=== PATIENT | female | born 1975 | race Caucasian/White ===

== ENCOUNTER 2024-05-02 06:34 | Day surgery (SDC) | payer MEDICARE, MEDICAID, SELFPAY ==
[2024-04-27 07:26] VITALS: BMI 36.5
--- NOTE | 2024-04-29 11:56 | P.CONAN_ITS ---
HPI - Anesthesia Eval Consult details Narrative: 49yo F for Right Cataract Extraction IOL Insertion No previous cataract on record Down's syndrome - custodial - signs for self PMFSH Past Medical History Medical History Severe obesity (BMI 35.0-39.9) with comorbidity Sleep apnea Down's syndrome Dementia Acne Surgical History Surgical History History of ear surgery History of esophagogastroduodenoscopy (EGD) Social History Social History Patient Tobacco Use Status: Never used Tobacco Use of substances other than those prescribed or required for medical reasons: No Advance Directives: No Advance Directives Information Provided: Yes Advance Directives on File: No Recently lost weight without trying: No Nutrition Risks: No Nutritional Risk Patient : No Meds Allergies Allergy/AdvReac Type Severity Reaction Status Date / Time No Known Allergies Allergy Verified 05/02/24 07:07 Home Medications ?Medication ?Instructions ?Recorded ?Confirmed ?Last Taken ?Type acetaminophen 650 mg 650 mg PO Q8H PRN Pain 04/27/24 05/02/24 Unknown History tablet,extended release (Tylenol 8 Hour) aluminum-mag hydroxide-simethicone 10 ml PO QID PRN Acid Reflux 04/27/24 05/02/24 Unknown History 200 mg-200 mg-20 mg/5 mL oral susp fluoxetine 20 mg capsule 20 mg PO DAILY 04/27/24 05/02/24 05/02/24 History guaifenesin 100 mg/5 mL oral liquid 200 mg PO Q4H PRN Cough 04/27/24 05/02/24 Unknown History levothyroxine 75 mcg tablet 75 mcg PO DAILY 04/27/24 05/02/24 05/02/24 History Exam Height,Weight and Vital Signs: Height 4 ft 3.97 in Weight 63.6 kg Assessment and Plan Assessment Anesthesia Assessment: Chart Reviewed
[2024-05-02] VITALS (7 sets, daily range): BP systolic 115–129; BP diastolic 49–66; PULSE 51–64; RESP 16–18; TEMP 36.3–36.6; O2SAT 97–100; BMI 36.4
[2024-05-02] MEDS: Tetracaine HCl/PF 0.5% Oph Sol 4 ML DROPS 1 DROP EYE-RIGHT (07:10)
[2024-05-02] MEDS: Cyclopentolate 1 % Ophth Sol 2 ML DRPBTL 1 DROP EYE-RIGHT ×3 (07:11→07:27)
[2024-05-02] MEDS: Tropicamide 1 % Ophth Sol 3 ML BTL 1 DROP EYE-RIGHT ×3 (07:13→07:29)
[2024-05-02] MEDS: Ketorolac Tromethamine 0.5% Op 5 ML DROPS 1 DROP EYE-RIGHT ×3 (07:15→07:31)
[2024-05-02] MEDS: Phenylephrine HCL 2.5% Oph SoL 2 ML BOTTLE 1 DROP EYE-RIGHT ×3 (07:17→07:33)
[2024-05-02] MEDS: Lactated Ringers 500 ML 50 ML IV (07:19)
--- NOTE | 2024-05-02 07:25 | HO.ANESPROP2 ---
[facility] Past Medical History Medical History Severe obesity (BMI 35.0-39.9) with comorbidity Sleep apnea Down's syndrome Dementia Acne Functional capacity: independent ambulation Patient : No Family History Family history of problems with anesthesia: No Surgical History Surgical History History of ear surgery History of esophagogastroduodenoscopy (EGD) History of Problems with Anesthesia: No Social History Social History Patient Tobacco Use Status: Never used Tobacco Use of substances other than those prescribed or required for medical reasons: No Advance Directives: No Advance Directives Information Provided: Yes Advance Directives on File: No Recently lost weight without trying: No Nutrition Risks: No Nutritional Risk Meds Allergies Allergy/AdvReac Type Severity Reaction Status Date / Time No Known Allergies Allergy Verified 05/02/24 07:07 Active Medications: Current Medications Lactated Ringer's (Lr) 500 mls @ 50 mls/hr IV .Q10H HUNTER Stop: 05/02/24 16:59 Last Admin: 05/02/24 07:19 Dose: 50 mls/hr Povidone Iodine (Povidone Iodine 5 % Ophth Soln 30 Ml Bottle) 1 appl EYE-RIGHT PREOP PRN PRN Reason: Pre-Op Surgical Implant Prophy Home Medications ?Medication ?Instructions ?Recorded ?Confirmed ?Last Taken ?Type acetaminophen 650 mg 650 mg PO Q8H PRN Pain 04/27/24 05/02/24 Unknown History tablet,extended release (Tylenol 8 Hour) aluminum-mag hydroxide-simethicone 10 ml PO QID PRN Acid Reflux 04/27/24 05/02/24 Unknown History 200 mg-200 mg-20 mg/5 mL oral susp fluoxetine 20 mg capsule 20 mg PO DAILY 04/27/24 05/02/24 05/02/24 History guaifenesin 100 mg/5 mL oral liquid 200 mg PO Q4H PRN Cough 04/27/24 05/02/24 Unknown History levothyroxine 75 mcg tablet 75 mcg PO DAILY 04/27/24 05/02/24 05/02/24 History Exam Height,Weight and Vital Signs: Height 4 ft 3.97 in Weight 63.4 kg Last Vital Signs Temp 97.6 F 05/02/24 07:15 Pulse 51 05/02/24 07:15 Resp 16 05/02/24 07:15 BP 129/58 L 05/02/24 07:15 Pulse Ox 100 05/02/24 07:15 O2 Del Method Room Air 05/02/24 07:15 Airway Mallampati Class: III TM Dist: >3cm Neck ROM: Full Heart: RRR Lungs: CTA Assessment and Plan Assessment Anesthesia Assessment: Anesthesia Plan Discussed and Chart Reviewed Final Anesthetic Review Family History of Problems with Anesthesia: No History of Problems with Anesthesia: No NPO: Yes ASA Class: III Final Preanesthetic Review: Meds/Allgs Chart Reviewed, Consent Obtained/Reviewed and Anes Risks/Benef Reviewed Patient Risk: Low Procedure Risk: Low Anesthetic Plan Anesthetic Plan: MAC: Disposition: Standard PACU
--- NOTE | 2024-05-02 07:33 | PC.NURSE ---
Sister Zenaida Florian at bedside. Patient alert to self. Unable to answer what procedure is being done and where she is. Zenaida, next of kin, to sign legal documents and consents.
[2024-05-02 07:51] LABS: UPreg QC Valid YES; Urine Pregnancy NEGATIVE (NEGATIVE)
--- NOTE | 2024-05-02 08:03 | MHC.SHP ---
Pre-Procedural Eval Section A - 24 Hr Update-Section A only Date of Service: 05/02/24 The patient is an INPATIENT: No Changes since office visit: No Cold of Flu in the past 2 weeks, No New Medical Problems, No Changes in Medication and No Patient answered all questions The patient has been examined within 24 hours of the surgical procedure. The History & Physical has been completed within 30 days and I have reviewed it.: Yes Section B - Complete if H&P > 30 days Chief Complaint: Age-related nuclear cataract, right eye Allergies: Allergies Allergy/AdvReac Type Severity Reaction Status Date / Time No Known Allergies Allergy Verified 05/02/24 07:07 Plan Diagnosis/Plan: Unchanged I have reviewed the history and physical and performed a pertinent physical examination on my patient. No changes have occurred unless specified. Time Spent With Patient Time: Total time managing care of this patient today ____ minutes.
--- NOTE | 2024-05-02 08:03 | HO.PNOPHT ---
Ophthalmology Procedure Procedure Date of Service: 05/02/24 Ophthalmology Viscoelastic: Healon Duet Dual Pack Pro Ophthalmology Lenses: IOL Acrysof MP - MA60AC (17) Procedure Notes: PREOPERATIVE DIAGNOSIS: Decreased visual acuity right eye secondary to cataract POSTOPERATIVE DIAGNOSIS: Same PROCEDURE: Right cataract extraction with intraocular lens insertion SURGEON: Rusty Greene M.D. ANESTHESIA: General ESTIMATED BLOOD LOSS: None COMPLICATIONS: None After obtaining informed consent, the patient was brought to the operating room suite and placed in the supine position. After adequate sedation per anesthesia, topical drops of Tetracaine were given to the right eye. The eye was then prepped and draped in the usual sterile fashion. The operating room microscope was then positioned over the operative eye and a lid speculum placed. A paracentesis was created. Viscoelastic was then instilled into the anterior chamber. A three plane incision was then created temporally, utilizing a 2.85 mm keratome. Capsulotomy forceps were then utilized to create a circular tear capsulotomy. Hydrodissection and hydrodelineation were carried out until adequate mobilization of the nucleus occurred. Phacoemulsification was then utilized to remove the dense central nucleus followed by removal of the cortical material utilizing the automated aspiration irrigation unit. Viscoelastic was instilled into the posterior capsular bag followed by placement of a posterior chamber intraocular lens without difficulty. The residual Viscoelastic was then removed utilizing the automated IA machine. The wound was checked and found to be watertight. The patient tolerated the procedure well and the lid speculum was removed. Intracameral injection of Vigamox 0.1 mL followed by a subtenon injection of Kenalog-40 0.2 mL were administered. The patient will be seen in the a.m.
--- NOTE | 2024-05-02 08:28 | P.CONAN_ITS ---
[facility], LAT[facility] Past Medical History Medical History Severe obesity (BMI 35.0-39.9) with comorbidity Sleep apnea Down's syndrome Dementia Acne Functional capacity: independent ambulation Patient : No Family History Family history of problems with anesthesia: No Surgical History Surgical History History of ear surgery History of esophagogastroduodenoscopy (EGD) History of Problems with Anesthesia: No Social History Social History Patient Tobacco Use Status: Never used Tobacco Use of substances other than those prescribed or required for medical reasons: No Advance Directives: No Advance Directives Information Provided: Yes Advance Directives on File: No Recently lost weight without trying: No Nutrition Risks: No Nutritional Risk Patient : No Meds Allergies Allergy/AdvReac Type Severity Reaction Status Date / Time No Known Allergies Allergy Verified 05/02/24 07:07 Active Medications: Current Medications Lactated Ringer's (Lr) 500 mls @ 50 mls/hr IV .Q10H HUNTER Stop: 05/02/24 16:59 Last Admin: 05/02/24 07:19 Dose: 50 mls/hr Naloxone HCl (Naloxone Hcl 0.4 Mg/Ml Vial) 0.04 mg IVPUSH Q5M PRN PRN Reason: Excessive sedation or RR < 8 Povidone Iodine (Povidone Iodine 5 % Ophth Soln 30 Ml Bottle) 1 appl EYE-RIGHT PREOP PRN PRN Reason: Pre-Op Surgical Implant Prophy Home Medications ?Medication ?Instructions ?Recorded ?Confirmed ?Last Taken ?Type acetaminophen 650 mg 650 mg PO Q8H PRN Pain 04/27/24 05/02/24 Unknown History tablet,extended release (Tylenol 8 Hour) aluminum-mag hydroxide-simethicone 10 ml PO QID PRN Acid Reflux 04/27/24 05/02/24 Unknown History 200 mg-200 mg-20 mg/5 mL oral susp fluoxetine 20 mg capsule 20 mg PO DAILY 04/27/24 05/02/24 05/02/24 History guaifenesin 100 mg/5 mL oral liquid 200 mg PO Q4H PRN Cough 04/27/24 05/02/24 Unknown History levothyroxine 75 mcg tablet 75 mcg PO DAILY 04/27/24 05/02/24 05/02/24 History Exam Height,Weight and Vital Signs: Height 4 ft 3.97 in Weight 63.4 kg Last Vital Signs Temp 97.6 F 05/02/24 07:15 Pulse 51 05/02/24 07:15 Resp 16 05/02/24 07:15 BP 129/58 L 05/02/24 07:15 Pulse Ox 100 05/02/24 07:15 O2 Del Method Room Air 05/02/24 07:15 Pertinent Lab Results Pertinent Lab Results: Laboratory Tests 05/02/24 07:36 Urine Test NEGATIVE Airway Mallampati Class: III TM Dist: >3cm Neck ROM: Full Heart: RRR Lungs: CTA Assessment and Plan Assessment Anesthesia Assessment: Anesthesia Plan Discussed and Chart Reviewed Final Anesthetic Review Family History of Problems with Anesthesia: No History of Problems with Anesthesia: No NPO: Yes ASA Class: III Final Preanesthetic Review: Meds/Allgs Chart Reviewed, Consent Obtained/Reviewed and Anes Risks/Benef Reviewed Patient Risk: Intermediate Procedure Risk: Low Anesthetic Plan Anesthetic Plan: MAC: Disposition: Standard PACU
[2024-05-02] MEDS: Acetaminophen 325 MG TABLET 650 MG PO (09:19)
--- NOTE | 2024-05-02 09:32 | HO.POSTANES ---
Post Anesthesia Evaluation Post Anesthesia Evaluation Date of Service: 05/02/24 Vital Signs: Vital Signs Temp Pulse Resp BP Pulse Ox O2 Del Method 05/02/24 09:05 62 18 115/57 L 97 Room Air 05/02/24 09:00 64 16 122/66 97 Room Air 05/02/24 08:55 56 16 122/51 L 97 Room Air 05/02/24 08:50 57 16 115/52 L 97 Room Air 05/02/24 08:48 97.8 F 59 16 119/49 L 97 Room Air 05/02/24 07:15 97.6 F 51 16 129/58 L 100 Room Air Anesthesia: General LMA Mental Status: Awake Pain Control: Satisfactory Nausea/Vomiting: None Hydration: Adequate Anesthesia-Related Issues: No Anes. Related Issues
== END 2024-05-02 10:48 | disposition home or self-care (01) ==
PROVIDERS: Nurse Practitioner; PCP Internal Medicine; Visit Provider Ophthalmology
PROC: (CPT 66985; principal; 2024-05-02 07:30)
DX: H25.11 Age-related nuclear cataract, right eye (principal); H52.4 Presbyopia; H11.153 Pinguecula, bilateral; Q90.9 Down syndrome, unspecified; H04.123 Dry eye syndrome of bilateral lacrimal glands; Z83.518 Family history of other specified eye disorder; E03.9 Hypothyroidism, unspecified; G47.33 Obstructive sleep apnea (adult) (pediatric); F03.90 Unspecified dementia, unspecified severity, without behavioral disturbance, psychotic disturbance, mood disturbance, and anxiety; Z79.899 Other long term (current) drug therapy; Z99.89 Dependence on other enabling machines and devices
CPT/HCPCS: 66984; 81025; J2003; J2250; J2704; J3301; V2630

== ENCOUNTER 2024-05-16 06:23 | Day surgery (SDC) | payer MEDICARE, MEDICAID, SELFPAY ==
[2024-05-12 07:49] VITALS: BMI 36.5
--- NOTE | 2024-05-12 14:22 | P.CONAN_ITS ---
Documented by User: Sophia Shannon NP 05/12/24 14:25 HPI - Anesthesia Eval Consult details Narrative: 49yo F for Left Cataract Extraction IOL Insertion Right eye 05/02/24: GA-LMA 3 Down's syndrome - long term - signs for self PMFSH Past Medical History Medical History (Updated 05/16/24 @ 06:55 by Katt Fink, RN) Hx of cataract Severe obesity (BMI 35.0-39.9) with comorbidity Sleep apnea Down's syndrome Dementia Acne Family History Family history of problems with anesthesia: No Surgical History Surgical History History of ear surgery History of esophagogastroduodenoscopy (EGD) History of Problems with Anesthesia: No Social History Social History Housing Other:: alf Are you a primary family day care worker to a significant other at home: No Do you presently have visiting nurse or other home services: Yes (lives in alf) Patient Tobacco Use Status: Never used Tobacco Use of substances other than those prescribed or required for medical reasons: No Have you been hit, kicked, punched, or otherwise hurt by someone within the past year? If so, by whom?: No Advance Directives: No Advance Directives Information Provided: Yes Advance Directives on File: No Recently lost weight without trying: No Eating poorly because of decreased appetite: No Patient : No : No Meds Allergies Allergy/AdvReac Type Severity Reaction Status Date / Time No Known Allergies Allergy Verified 05/16/24 06:55 Home Medications ?Medication ?Instructions ?Recorded ?Confirmed ?Last Taken ?Type acetaminophen 650 mg 650 mg PO Q8H PRN Pain 04/27/24 05/12/24 Unknown History tablet,extended release (Tylenol 8 Hour) aluminum-mag hydroxide-simethicone 10 ml PO QID PRN Acid Reflux 04/27/24 05/12/24 Unknown History 200 mg-200 mg-20 mg/5 mL oral susp fluoxetine 20 mg capsule 20 mg PO DAILY 04/27/24 05/12/24 05/16/24 History guaifenesin 100 mg/5 mL oral liquid 200 mg PO Q4H PRN Cough 04/27/24 05/12/24 Unknown History levothyroxine 75 mcg tablet 75 mcg PO DAILY 04/27/24 05/12/24 05/16/24 History Exam Height,Weight and Vital Signs: Height 4 ft 3.97 in Weight 63.6 kg Assessment and Plan Assessment Anesthesia Assessment: Chart Reviewed Final Anesthetic Review Family History of Problems with Anesthesia: No History of Problems with Anesthesia: No Documented by User: Concepcion Beaulieu MD 05/16/24 07:26 [facility] Past Medical History Medical History (Updated 05/16/24 @ 06:55 by Katt Fink RN) Hx of cataract Severe obesity (BMI 35.0-39.9) with comorbidity Sleep apnea Down's syndrome Dementia Acne Surgical History Surgical History History of ear surgery History of esophagogastroduodenoscopy (EGD) Social History Social History Housing Other:: alf Are you a primary family day care worker to a significant other at home: No Do you presently have visiting nurse or other home services: Yes (lives in alf) Patient Tobacco Use Status: Never used Tobacco Use of substances other than those prescribed or required for medical reasons: No Have you been hit, kicked, punched, or otherwise hurt by someone within the past year? If so, by whom?: No Advance Directives: No Advance Directives Information Provided: Yes Advance Directives on File: No Recently lost weight without trying: No Eating poorly because of decreased appetite: No Patient : No : No Meds Allergies Allergy/AdvReac Type Severity Reaction Status Date / Time No Known Allergies Allergy Verified 05/16/24 06:55 Home Medications ?Medication ?Instructions ?Recorded ?Confirmed ?Last Taken ?Type acetaminophen 650 mg 650 mg PO Q8H PRN Pain 04/27/24 05/12/24 Unknown History tablet,extended release (Tylenol 8 Hour) aluminum-mag hydroxide-simethicone 10 ml PO QID PRN Acid Reflux 02/26/25 03/13/25 Unknown History 200 mg-200 mg-20 mg/5 mL oral susp fluoxetine 20 mg capsule 20 mg PO DAILY 04/27/24 05/12/24 05/16/24 History guaifenesin 100 mg/5 mL oral liquid 200 mg PO Q4H PRN Cough 04/27/24 05/12/24 Unknown History levothyroxine 75 mcg tablet 75 mcg PO DAILY 04/27/24 05/12/24 05/16/24 History Exam Airway Mallampati Class: II TM Dist: >3cm Neck ROM: Full Heart: rrr Lungs: cta Assessment and Plan Assessment Anesthesia Assessment: Anesthesia Plan Discussed Final Anesthetic Review NPO: Yes ASA Class: III Final Preanesthetic Review: No Changes in Pt Med Stat, Meds/Allgs Chart Reviewed and Consent Obtained/Reviewed Patient Risk: Intermediate Procedure Risk: Low Anesthetic Plan Anesthetic Plan: MAC: Disposition: Standard PACU
[2024-05-16 06:53] VITALS: BP 112/52; PULSE 57; RESP 18; TEMP 36.7; O2SAT 98
[2024-05-16 06:58] LABS: UPreg QC Valid YES
[2024-05-16 06:59] LABS: Urine Pregnancy NEGATIVE (NEGATIVE)
[2024-05-16 07:00] VITALS: BP 112/52; PULSE 57; RESP 18; TEMP 36.7; O2SAT 98
--- NOTE | 2024-05-16 07:34 | MHC.SHP ---
Pre-Procedural Eval Section A - 24 Hr Update-Section A only Date of Service: 05/16/24 The patient is an INPATIENT: No Changes since office visit: No Cold of Flu in the past 2 weeks, No New Medical Problems, No Changes in Medication and No Patient answered all questions The patient has been examined within 24 hours of the surgical procedure. The History & Physical has been completed within 30 days and I have reviewed it.: Yes Section B - Complete if H&P > 30 days Chief Complaint: Age-related nuclear cataract, left eye Allergies: Allergies Allergy/AdvReac Type Severity Reaction Status Date / Time No Known Allergies Allergy Verified 05/16/24 06:55 Plan Diagnosis/Plan: Unchanged I have reviewed the history and physical and performed a pertinent physical examination on my patient. No changes have occurred unless specified. Time Spent With Patient Time: Total time managing care of this patient today ____ minutes.
--- NOTE | 2024-05-16 07:34 | HO.PNOPHT ---
Ophthalmology Procedure Procedure Date of Service: 05/16/24 Ophthalmology Viscoelastic: Healon Duet Dual Pack Pro Ophthalmology Lenses: IOL Acrysof MP - MA60AC (21.5) Procedure Notes: PREOPERATIVE DIAGNOSIS: Decreased visual acuity left eye secondary to cataract POSTOPERATIVE DIAGNOSIS: Same PROCEDURE: Left cataract extraction with intraocular lens insertion SURGEON: Rusty Greene M.D. ANESTHESIA: Topical/MAC ESTIMATED BLOOD LOSS: None COMPLICATIONS: None After obtaining informed consent, the patient was brought to the operation room suite and placed in the supine position. After adequate sedation per anesthesia, topical drops of Tetracaine were given to the left eye. The eye was then prepped and draped in the usual sterile fashion. The operating room microscope was then positioned over the operative eye and a lid speculum placed. A paracentesis was created. Viscoelastic was then instilled into the anterior chamber. A three plane incision was then created temporally, utilizing a 2.85 mm keratome. Capsulotomy forceps were then utilized to create a circular tear capsulotomy. Hydrodissection and hydrodelineation were carried out until adequate mobilization of the nucleus occurred. Phacoemulsification was then utilized to remove the dense central nucleus followed by removal of the cortical material utilizing the automated aspiration irrigation unit. Viscoat elastic was instilled into the posterior capsular bag followed by placement of a posterior chamber intraocular lens without difficulty. The residual Viscoat elastic was then removed utilizing the automated IA machine. The wound was check and found to be watertight. The patient tolerated the procedure well and the lid speculum was removed. Intracameral injection of Vigamox 0.1 mL followed by a subtenon injection of Kenalog-40 0.2 mL were administered. The patient will be seen in the a.m.
[2024-05-16] MEDS: Tropicamide 1 % Ophth Sol 3 ML BTL 1 DROP EYE-LEFT ×3 (07:42→07:54)
[2024-05-16] MEDS: Tetracaine HCl/PF 0.5% Oph Sol 4 ML DROPS 1 DROP EYE-LEFT (07:42)
[2024-05-16] MEDS: Lactated Ringers 500 ML 50 ML IV (07:42)
[2024-05-16] MEDS: Cyclopentolate 1 % Ophth Sol 2 ML DRPBTL 1 DROP EYE-LEFT ×3 (07:43→07:53)
[2024-05-16] MEDS: Phenylephrine HCL 2.5% Oph SoL 2 ML BOTTLE 1 DROP EYE-LEFT ×3 (07:43→07:53)
[2024-05-16] MEDS: Ketorolac Tromethamine 0.5% Op 5 ML DROPS 1 DROP EYE-LEFT ×3 (07:43→07:53)
--- NOTE | 2024-05-16 08:02 | PC.NURSE ---
Author requested surgeon to assess left eye prior to putting drops in due to it looking red and wet. Surgeon stated ok to proceed, no interventions.
[2024-05-16 08:53] VITALS: BP 116/54; PULSE 55; RESP 16; TEMP 36.4; O2SAT 100
[2024-05-16 09:08] VITALS: BP 109/47; PULSE 50; RESP 16; TEMP 36.4; O2SAT 96
== END 2024-05-16 09:15 | disposition home or self-care (01) ==
PROVIDERS: Nurse Practitioner; PCP Internal Medicine; Visit Provider Ophthalmology
PROC: (CPT 66985; principal; 2024-05-16 07:30)
DX: H25.12 Age-related nuclear cataract, left eye (principal); H52.4 Presbyopia; Z83.518 Family history of other specified eye disorder; H11.153 Pinguecula, bilateral; H04.123 Dry eye syndrome of bilateral lacrimal glands; Q90.9 Down syndrome, unspecified; F03.90 Unspecified dementia, unspecified severity, without behavioral disturbance, psychotic disturbance, mood disturbance, and anxiety; E03.9 Hypothyroidism, unspecified; E66.01 Morbid (severe) obesity due to excess calories; Z68.36 Body mass index [BMI] 36.0-36.9, adult; G47.33 Obstructive sleep apnea (adult) (pediatric); Z99.89 Dependence on other enabling machines and devices; Z79.899 Other long term (current) drug therapy
CPT/HCPCS: 66984; 81025; J2250; J3301; V2630